=== PATIENT | male | born 1990 | race Caucasian/White ===

== ENCOUNTER 2017-03-18 22:51 | Emergency (ER) | payer BC, OTHER ==
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
[2017-03-18] MEDS ORDERED: Iopamidol 612 MG/ML 150 ML Bottle IVPUSH ONE (23:04)
[2017-03-18] MEDS ORDERED: Sodium Chloride 0.9% 10 ML Syringe FLUSH PRN (23:04)
[2017-03-18] MEDS ORDERED: Sodium Chloride 0.9% 1,000 ML IV SCH (23:15)
--- NOTE | 2017-03-21 08:34 | CT ---
CT thoracic spine Technique: Multiple axial sections through the thoracic spine were obtained. Reconstructed sagittal and coronal images were reviewed. Minimal anterior wedging noted of C7. Fracture involving the left apophyseal joint at C7 again noted as described on cervical spine exam. Moderate compression deformity noted of T8 with approximately 40% vertebral body height loss. Very minimal retrolisthesis of the posterior vertebral line is seen but no central canal stenosis is noted. No posterior fracture seen at T8. Slight retrolisthesis causes mild left-sided neural foraminal stenosis at T8-T9. Minimal Schmorl's node deformity seen within the inferior endplate of T12. Impression: 1. Anterior compression deformity of C7 with left-sided apophyseal fracture at C7 which was described on CT cervical spine study. 2. Anterior compression fracture of T8. Mild retrolisthesis of the posterior vertebral line is seen. This causes no central canal stenosis but causes mild left-sided neural foraminal stenosis. 3. Incidental Schmorl's node deformity within the inferior endplate of T12. Diagnostic code #5 I agree with preliminary report issued by [facility] ([facility] report finalized on 03/19/17, 12:48 AM Central Time) - additional finding as noted above.
--- NOTE | 2017-03-21 08:34 | CT ---
CT lumbar spine Technique: Multiple axial sections were obtained through the lumbar spine. Reconstructed sagital and coronal images were reviewed. Findings: Vertebral body heights are maintained. Minimal posterior disc space narrowing is noted at L3-L4, L4-L5 and L5-S1. Slight disc bulging at L5-S1 is seen with calcification within the posterior disc bulge. No lumbar spine fracture is seen. No abnormal subluxation is seen. Impression: 1. Minimal degenerative change. Nothing acute is identified on CT study of the lumbar spine. Diagnostic code #2 I agree with preliminary report issued by [facility] ([facility] report finalized on 03/19/17, 1:04 AM Central Time)
--- NOTE | 2017-03-21 08:35 | CT ---
CT cervical spine Technique: Multiple axial sections were obtained from above C1 inferiorly to the bottom of T1. Reconstructed sagittal and coronal images were reviewed. Comparison: No prior cervical spine imaging is identified. Findings: Vertebral body heights are maintained with the exception of C7 which shows slight anterior wedging involving the superior endplate. Disc spaces are fairly well-preserved. Mild motion artifact is seen slightly diminishing details. Lamina fractures are identified at C6. Fracture involves the majority of the left-sided lamina and then extends to the base of the spinous process to involve a small portion of the right side of the lamina. Fracture is also identified to the base of the spinous process of C7 on the left side which extends into the superior facet of the apophyseal joint. There is displacement of this fracture by approximately 2-3 mm. No right-sided fracture seen at this level. No additional cervical spine fracture is seen. No central canal stenosis or neural foraminal stenosis is seen. No abnormal subluxation is identified on the reconstructed sagittal images. Impression: 1. Fractures within the posterior elements at C6 and C7 as described above. 2. Slight anterior wedging of the superior endplate of C7. Diagnostic code #5 I agree with preliminary report issued by [facility] ([facility] report finalized on 03/19/17, 12:42 AM Central Time)
--- NOTE | 2017-03-21 08:35 | CT ---
Head CT Technique: Multiple axial sections through the brain were obtained. Intravenous contrast was not utilized. Comparison: No previous intracranial imaging. Findings: Ventricles along with basal cisterns and sulci over the convexities are within normal limits. No abnormal parenchymal densities are seen. No evidence of intracranial hemorrhage. No midline shift or mass effect is seen. Bone window settings were reviewed which show the visualized sinuses to appear clear. No acute calvarial abnormality is seen. Mild motion artifact is noted on the base cuts. Impression: 1. Nothing acute is identified on noncontrast head CT exam. Diagnostic code #1 I agree with preliminary report issued by [facility] ([facility] report finalized on 03/19/17, 12:38 AM Central Time)
--- NOTE | 2017-03-21 08:35 | CT ---
CT chest Technique: Multiple axial sections through the chest were obtained. Intravenous contrast was utilized. Reconstructed coronal and sagittal images were obtained. Comparison: No previous chest imaging. Findings: Opacified great vessels appears within normal limits as seen on the CT exam. No mediastinal or hilar abnormalities are identified. No pericardial thickening is seen. Lung window setting show a small nodular density within the right middle lobe believed to be incidental. Minimal dependent atelectasis seen posteriorly within both lung bases. Minimal scarring noted next to the major fissure on the right side. Lungs otherwise are clear. Nothing seen to indicate pulmonary contusion. No pleural effusions or pneumothorax are seen. Bone window settings were reviewed which show a compression deformity of T8. This is approximately 40% vertebral body loss in height. Minimal retrolisthesis of the posterior vertebral line is seen. No posterior element fracture seen at this level. Other vertebral body heights are maintained within the thoracic spine. There is a small nondisplaced fracture seen within the lower sternum. No discrete rib fracture is seen. Impression: 1. Moderate anterior vertebral body compression fracture of T8. Minimal retrolisthesis of the posterior vertebral line is seen. Posterior elements at T8 are intact. 2. Nondisplaced lower sternal fracture is seen. 3. Other findings which are felt to be incidental as described above. Diagnostic code #3 I agree with preliminary report issued by [facility] ([facility] report finalized on 03/19/17, 12:46 AM Central Time - please note additional finding of sternal fracture as described above CT abdomen and pelvis Technique: Multiple axial sections were obtained from above the dome of the diaphragm inferiorly through the pubic symphysis. Intravenous contrast was utilized. No oral contrast has been given. Comparison: No previous abdominal imaging. Findings: Liver shows a small low density lesion anteriorly within the right lobe. This measures approximately 4.8 mm in size. This is too small to characterize by Hounsfield unit measurements but felt be incidental. Liver is otherwise unremarkable. Spleen appears within normal limits. Kidneys show symmetric contrast enhancement without hydronephrosis or mass. Adrenal glands show no abnormality. Pancreas is within normal limits. Gallbladder shows no calcified gallstones. Aorta appears within normal limits. No retroperitoneal adenopathy or mesenteric abnormalities are seen. No pelvic mass or adenopathy is identified. Images through the pelvis shows contrast within the distal ureters and bladder without extravasation of contrast. Mild soft tissue contusion seen within the posterior right flank. Bone window settings were reviewed which show minimal cystic change within the superior left acetabulum which is felt to be incidental. Nothing acute is seen within the pelvis or within the lumbar spine. Impression: 1. Small liver lesion felt to be incidental. 2. Contusion within the soft tissues of the right flank. 3. No additional abnormality identified on CT study of the abdomen and pelvis. Diagnostic code #2 I agree with preliminary report issued by [facility] ([facility] report finalized on 03/19/17, 12:47 AM Central Time) - several other incidental findings as noted above.
== END 2017-03-19 00:30 ==
LOC: JD.ED 22:51
DX: S06.0X9A Concussion with loss of consciousness of unspecified duration, initial encounter (principal); S12.501A Unspecified nondisplaced fracture of sixth cervical vertebra, initial encounter for closed fracture; S12.600A Unspecified displaced fracture of seventh cervical vertebra, initial encounter for closed fracture; S22.069A Unspecified fracture of T7-T8 vertebra, initial encounter for closed fracture; S00.01XA Abrasion of scalp, initial encounter; F17.200 Nicotine dependence, unspecified, uncomplicated; V59.50XA Passenger in pick-up truck or van injured in collision with unspecified motor vehicles in traffic accident, initial encounter
CPT/HCPCS: 36415; 51702; 51798; 70450; 71260; 72125; 72128; 72131; 74177; 80053; 80306; 81001; 82550; 83690; 84484; 85025; 85610; 85730; 93005; 96360; 99285; G0480; J7040; J7050; Q9967; 93010